=== PATIENT | male | born 1995 | race Caucasian/White ===

== ENCOUNTER 2020-11-28 04:50 | Emergency (ER) | payer MEDICAID ==
[~2020-11-28] VITALS: Ht 162.6 cm; Wt 100.2 kg
[2020-11-28 05:04] VITALS: BP 153/98
--- NOTE | 2020-11-28 05:14 | NUR ---
EKG BEING PERFORMING IN TRIAGE BY TULIO MANZO.
--- NOTE | 2020-11-28 05:19 | NUR ---
PT REPORTING DRINKING 4 BEERS LAST NIGHT AND METH YESTERDAY. ACCUCHECK 116.
--- NOTE | 2020-11-28 05:20 | NUR ---
PT BEING ASSESSED BY ERMD.
[2020-11-28] MEDS ORDERED: LORazepam 1 MG TAB PO ONE (05:25)
--- NOTE | 2020-11-28 05:50 | NUR ---
PT UP FOR DISCHARGE. DISCHARGE INSTRUCTIONS AND MEDICATION INFORMATION GIVEN BY DR. FELICIANO. PT AMBULATORY TO PERSONAL VEHICLE
== END 2020-11-28 05:50 | disposition home or self-care (01) ==
LOC: MED 04:50
DX: F15.120 Other stimulant abuse with intoxication, uncomplicated (principal); R07.9 Chest pain, unspecified; F12.10 Cannabis abuse, uncomplicated; F17.210 Nicotine dependence, cigarettes, uncomplicated; Z71.6 Tobacco abuse counseling
CPT/HCPCS: 93005; 99283

== ENCOUNTER 2020-11-28 06:45 | Emergency (ER) | payer MEDICAID ==
[~2020-11-28] VITALS: Ht 170.2 cm; Wt 100.2 kg
[2020-11-28 06:53] VITALS: BP 156/85
[2020-11-28 07:15] LABS: BASOPHILS # (AUTO) 0.1 K/uL (0.00-0.22); BASOPHILS % (AUTO) 0.5 % (0.0-2.0); EOSINOPHILS % (AUTO) 0.2 % (0.0-4.0); HEMATOCRIT 53.9 % (36-52); HEMOGLOBIN 18.1 g/dL (12.0-18.0); LYMPHOCYTES # (AUTO) 1.9 K/uL (2.0-11.5); LYMPHOCYTES % (AUTO) 15.2 % (20.5-51.1); MEAN CORPUSCULAR HEMOGLOBIN 31 pg (27-31); MEAN CORPUSCULAR HGB CONC 34 g/dL (33-37); MEAN CORPUSCULAR VOLUME 91.3 fL (80-94); MONOCYTES # (AUTO) 0.8 K/uL (0.8-1.0); MONOCYTES % (AUTO) 6.4 % (1.7-9.3); NEUTROPHILS # (AUTO) 9.7 K/uL (1.8-7.7); NEUTROPHILS % (AUTO) 77.7 % (42.2-75.2); PLATELET COUNT (AUTO) 253 K/uL (140-450); WHITE BLOOD COUNT (AUTO) 12.4 K/uL (4.8-10.8)
[2020-11-28] MEDS ORDERED: NACL 0.9% 1,000 ML IV ONE (07:15)
[2020-11-28 07:35] LABS: ANION GAP 24.8 (8-16); CARBON DIOXIDE 17.9 mmol/L (21-32); CREATININE 1.4 mg/dL (0.6-1.3); POTASSIUM 4.7 mmol/L (3.5-5.1)
--- NOTE | 2020-11-28 08:04 | NUR ---
PT TAKEN TO ER BED 11
--- NOTE | 2020-11-28 08:43 | NUR ---
25/M PRESENTS TO ED WITH C/O RAPID HEART RATE, SOB AND CP. PATIENT STATES HE WAS SEEN HERE YESTERDAY FOR SAME SYMPTOMS BUT STATES SYMPTOMS ARE GETTING WORSE. PATIENT ADMITS TO DRINKING 4 BEERS AND SMOKING METH YESTERDAY, REPORTS 5/10 GENERALIZED CHEST PAIN. REPORTS USING METH IN THE PAST BUT DENIES USING AGAIN SINCE BEING D/C. DENIES N/V/D, URINARY SYMPTOMS. DR. WYNN AWARE OF PATIENT.
[2020-11-28 09:23] VITALS: BP 156/85
--- NOTE | 2020-11-28 09:24 | NUR ---
Patient discharged with v/s stable. Written and verbal after care instructions given and explained. Patient verbalized understanding. Ambulatory with steady gait. All questions addressed prior to discharge. Advised to follow up with PMD.
== END 2020-11-28 09:23 | disposition home or self-care (01) ==
LOC: MED 06:45
DX: F15.120 Other stimulant abuse with intoxication, uncomplicated (principal)
CPT/HCPCS: 36415; 71045; 80048; 84484; 85025; 93005; 96360; 99285; J7030; Q0092